=== PATIENT | female | born 1955 | race Two or more races ===

== ENCOUNTER 2020-02-11 15:46 | Inpatient (IN) | payer OTHER ==
[~2020-02-11] VITALS: Ht 162.6 cm; Wt 72.6 kg
--- NOTE | 2020-02-11 15:59 | Emergency Room Report ---
History of Present Illness General Chief Complaint: Upper Respiratory Illness Source: Patient Present Illness HPI Disclaimer: Please note that this report is being documented using DRAGON technology. This can lead to erroneous entry secondary to incorrect interpretation by the dictating instrument. HPI: 64-year-old female presents for evaluation of wheezing and shortness of breath. 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 No chemotherapy or surgery. Over the past 2 days the patient feels there is something stuck in her throat causing her wheezing/stridor. She has had some difficulty swallowing food. Also complaining of several episodes of emesis, one episode of loose stool, decreased appetite. Reports a cough though no significant change from baseline. Denies fever, chills. She is reporting some right ear pain and fullness intermittently over the past 2 weeks without changes in her hearing. She has intermittent episodes of vertigo but not currently. She has been treating the right ear pain with Motrin. Denies chest pain, palpitations, lightheadedness. PMH: Laryngeal cancer, pituitary adenoma PSH: Reviewed Allergies: None reported Social Hx: Denies drugs, tobacco or alcohol abuse Allergies: Coded Allergies: No Known Allergies (Unverified , 02/11/20) COVID-19 Screening Contact w/high risk pt: No Recent Travel to affected area: No Experienced COVID-19 symptoms?: Yes COVID-19 symptoms experienced: Shortness of Breath, Cough Review of Systems All Other Systems: negative except mentioned in HPI Physical Exam Vital Signs Date Time Temp Pulse Resp B/P (MAP) Pulse Ox O2 Delivery O2 Flow Rate FiO2 02/11/20 15:48 98.2 69 16 152/83 (106) 98 Room Air General: Awake and alert, no acute distress HEENT: NC/AT. EOMI. PERRLA. Right tympanic membrane is opacified but nonbulging. Left tympanic membrane view is obstructed by cerumen. Mild stridor but no respiratory distress. Uvula is midline, tongue is anatomic, no unilateral swelling, airway is patent. No foreign body identified. No submandibular edema. No erythema or discharge. Neck: Supple, trachea midline, no masses Chest Wall: No tenderness, no deformity Cardiovascular: RRR. S1 and S2 normal. No murmur appreciated Resp: Normal work of breathing. No cough, wheezing or crackles appreciated Abdomen: Abdomen is soft, nondistended. Nontender Skin: Intact. No abrasions, laceration or rash over the exposed skin MSK: Normal tone and bulk. Moving all extremities. No obvious deformity. Neuro: Awake and alert. Mentating appropriately. Medical Decision Making Diagnostic Impression: Primary Impression: Stridor Additional Impressions: URI (upper respiratory infection) Suspected 2018 novel coronavirus infection ER Course 66-year-old female history of laryngeal cancer treated with radiation last dose August 2019 presents for evaluation of 2 days worsening stridor shortness of breath as well as vomiting, diarrhea and right-sided ear pain with intermittent vertigo. Differential includes was not limited to viral syndrome, labyrinthitis , otitis media, pharyngitis, laryngitis, laryngeal mass recurrence, COVID-19, laryngeal edema, epiglottitis, lower airway obstruction, metastatic cancer, pneumonia, bronchitis, gastritis, gastroenteritis to name a few. Symptoms are consistent with a an upper respiratory infection. She has mild stridor but no respiratory distress and saturating well. Possible epiglottitis no concern for mass recurrence in the upper airway. Will start steroids, antibiotics, broad labs, CT scans of the neck and chest. Will send COVID-19 swab as well. Laboratory Tests Test 02/11/20 15:55 White Blood Count 6.8 K/UL (4.8-10.8) Red Blood Count 4.60 M/UL (4.20-5.40) Hemoglobin 13.2 G/DL (12.0-16.0) Hematocrit 40.0 % (37.0-47.0) Mean Corpuscular Volume 87 FL (80-99) Mean Corpuscular Hemoglobin 28.7 PG (27.0-31.0) Mean Corpuscular Hemoglobin Concent 33.1 G/DL (32.0-36.0) Red Cell Distribution Width 12.6 % (11.6-14.8) Platelet Count 359 K/UL (150-450) Mean Platelet Volume 7.2 FL (6.5-10.1) Neutrophils (%) (Auto) 67.7 % (45.0-75.0) Lymphocytes (%) (Auto) 26.0 % (20.0-45.0) Monocytes (%) (Auto) 4.7 % (1.0-10.0) Eosinophils (%) (Auto) 0.6 % (0.0-3.0) Basophils (%) (Auto) 0.9 % (0.0-2.0) Sodium Level 142 MMOL/L (136-145) Potassium Level 3.7 MMOL/L (3.5-5.1) Chloride Level 103 MMOL/L (98-107) Carbon Dioxide Level 27 MMOL/L (21-32) Anion Gap 12 mmol/L (5-15) Blood Urea Nitrogen 11 mg/dL (7-18) Creatinine 0.7 MG/DL (0.55-1.30) Estimated Glomerular Filtration Rate > 60 mL/min (>60) Glucose Level 108 MG/DL (74-106) H Calcium Level 9.1 MG/DL (8.5-10.1) CT/MRI/US Diagnostic Results CT/MRI/US Diagnostic Results : Impression Final Report CT neck with contrast History: Shortness of breath Technique: Axial contrast-enhanced CT of the neck with coronal, sagittal reformatted images. 99 cc Omnipaque 300 IV contrast. CTDI is 6.6 mGy and DLP is 334.2 mGy-cm. Technique more: One or more of the following dose reduction techniques were used : automated exposure control, adjustment of the mA and/or kV according to patient size, use of iterative reconstruction technique. Comparison: CT chest 02/11/2020 Findings: Intracranial: Normal. Globes orbits, visualized paranasal sinuses mastoid air cells, skull base are unremarkable. Vascular: Partially visualized [place], anterior and posterior circulation are unremarkable. Patent bilateral vertebral and carotid arteries. Upper chest: Separately dictated. No focal finding. Neck: Skull base, bilateral parapharyngeal spaces, parotids, boat hand space is seen to be normal. Oral cavity is symmetric and midline. Epiglottis, preepiglottic fat, submandibular region are noted to be normal. Normal asymmetry of the right greater than left false and true vocal cords. This may be artifactual. Submucosal space of the larynx, bilateral carotid sheath, suprascapular space are noted to be normal. Bones: Straightening of the normal cervical lordosis. Impression: 1. Negative for any significant of focal finding. 2. Straightening of the normal cervical lordosis. Radiologist: Abundio Burton MD Electronically Signed: 02/11/20 18:24 Study ready at 18:08 and initial results transmitted at 18:[address] chest with contrast History: Shortness of breath Technique: Axial contrast-enhanced CT of the chest with coronal, sagittal reformatted images. 99 cc Omnipaque 300 IV contrast. CTDI is 6.6 mGy and DLP is 334.2 mGy-cm. Technique more: One or more of the following dose reduction techniques were used : automated exposure control, adjustment of the mA and/or kV according to patient size, use of iterative reconstruction technique. Comparison: None Findings: Lungs: No endotracheal or endobronchial lesion. Negative for any interstitial or of the right lung finding. Negative for any significant or suspicious lung nodule. Minimal atelectasis in the inferior segment of left lingula overlying the fissure. Soft tissues: Thoracic inlet, suprascapular space, upper mediastinum, bilateral axilla are unremarkable. Negative for any significant mediastinal, hilar or subcarinal lymphadenopathy. Small hiatal hernia is seen. Vascular: Heart and pericardium are unremarkable. Normal caliber of the aorta. Chest wall: No focal findings. Upper abdomen: No focal findings. Bones: No lytic of last bone lesion. IMPRESSION: 1. No acute chest findings. Radiologist: Abundio Burton MD Electronically Signed: 02/11/20 18:20 Study ready at 18:07 and initial results transmitted at 18:20 Last Vital Signs Date Time Temp Pulse Resp B/P (MAP) Pulse Ox O2 Delivery O2 Flow Rate FiO2 02/11/20 15:48 98.2 69 16 152/83 (106) 98 Room Air Reevaluation Impression Labs have returned within normal limits. Patient remains mildly stridulous but no hypoxia. Chest CT does not show any infiltrate or mass. CT of the neck does not show evidence of acute epiglottitis. They note some asymmetry between the vocal cords however given her prior history this would not be unexpected. I feel the vocal cords are edematous. She was given steroids and ceftriaxone. Will admit for airway monitoring on observation status. Admitted to panel physician group Disposition: PLACE IN OBSERVATION Condition: Stable Darnell Bejarano MD February 11, 2020 15:59
--- NOTE | 2020-02-11 16:00 | NUR ---
ED Nurse Note: Pt walked in from home c/o productive cough x 2 days with SOB. Pt reports vomiting. Pt has hx of throat ca and last radiation was august of 2019. Respirations even and unlabored on room air. Audible wheezing. Vitals stable as documented. Afebrile, A+Ox4.
[2020-02-11 16:10] VITALS: BP 149/85
[2020-02-11 16:45] LABS: ANION GAP 12 mmol/L (5-15); BLOOD UREA NITROGEN 11 mg/dL (7-18); CALCIUM 9.1 MG/DL (8.5-10.1); CARBON DIOXIDE 27 MMOL/L (21-32); CHLORIDE 103 MMOL/L (98-107); CREATININE 0.7 MG/DL (0.55-1.30); POTASSIUM 3.7 MMOL/L (3.5-5.1); SODIUM 142 MMOL/L (136-145)
[2020-02-11 16:52] LABS: BASOPHILS % (AUTO) 0.9 % (0.0-2.0); EOSINOPHILS % (AUTO) 0.6 % (0.0-3.0); HEMOGLOBIN 13.2 G/DL (12.0-16.0); MEAN CORPUSCULAR VOLUME 87 FL (80-99); MONOCYTES % (AUTO) 4.7 % (1.0-10.0); NEUTROPHILS % (AUTO) 67.7 % (45.0-75.0); PLATELET COUNT 359 K/UL (150-450); RED CELL DISTRIBUTION WIDTH 12.6 % (11.6-14.8); WHITE BLOOD COUNT 6.8 K/UL (4.8-10.8)
--- NOTE | 2020-02-11 17:15 | NUR ---
ED Nurse Note: Pt in CT
--- NOTE | 2020-02-11 17:50 | NUR ---
ED Nurse Note: Pt back from CT
[2020-02-11] MEDS ORDERED: cefTRIAXone 1 GM in NS 55 ML IVPB ONE (18:15)
[2020-02-11] MEDS ORDERED: Solu-MEDROL 125mg Inj IVP ONE (18:15)
--- NOTE | 2020-02-11 18:21 | Diagnostic Imaging Report ---
CT chest with contrast History: Shortness of breath Technique: Axial contrast-enhanced CT of the chest with coronal, sagittal reformatted images. 99 cc Omnipaque 300 IV contrast. CTDI is 6.6 mGy and DLP is 334.2 mGy-cm. Technique more: One or more of the following dose reduction techniques were used: automated exposure control, adjustment of the mA and/or kV according to patient size, use of iterative reconstruction technique. Comparison: None Findings: Lungs: No endotracheal or endobronchial lesion. Negative for any interstitial or of the right lung finding. Negative for any significant or suspicious lung nodule. Minimal atelectasis in the inferior segment of left lingula overlying the fissure. Soft tissues: Thoracic inlet, suprascapular space, upper mediastinum, bilateral axilla are unremarkable. Negative for any significant mediastinal, hilar or subcarinal lymphadenopathy. Small hiatal hernia is seen. Vascular: Heart and pericardium are unremarkable. Normal caliber of the aorta. Chest wall: No focal findings. Upper abdomen: No focal findings. Bones: No lytic of last bone lesion. IMPRESSION: 1. No acute chest findings.
--- NOTE | 2020-02-11 18:25 | Diagnostic Imaging Report ---
CT neck with contrast History: Shortness of breath Technique: Axial contrast-enhanced CT of the neck with coronal, sagittal reformatted images. 99 cc Omnipaque 300 IV contrast. CTDI is 6.6 mGy and DLP is 334.2 mGy-cm. Technique more: One or more of the following dose reduction techniques were used: automated exposure control, adjustment of the mA and/or kV according to patient size, use of iterative reconstruction technique. Comparison: CT chest 02/11/2020 Findings: Intracranial: Normal. Globes orbits, visualized paranasal sinuses mastoid air cells, skull base are unremarkable. Vascular: Partially visualized [place], anterior and posterior circulation are unremarkable. Patent bilateral vertebral and carotid arteries. Upper chest: Separately dictated. No focal finding. Neck: Skull base, bilateral parapharyngeal spaces, parotids, infrastructure manager space is seen to be normal. Oral cavity is symmetric and midline. Epiglottis, preepiglottic fat, submandibular region are noted to be normal. Normal asymmetry of the right greater than left false and true vocal cords. This may be artifactual. Submucosal space of the larynx, bilateral carotid sheath, suprascapular space are noted to be normal. Bones: Straightening of the normal cervical lordosis. Impression: 1. Negative for any significant of focal finding. 2. Straightening of the normal cervical lordosis.
--- NOTE | 2020-02-11 18:28 | NUR ---
ED Nurse Note: Pt oncologist is Dr. Vasyl Santos --> [phone]
[2020-02-11 18:34] VITALS: BP 157/86
--- NOTE | 2020-02-11 18:36 | NUR ---
ED Nurse Note: Pt continues to have stridor. O2 saturation 98% on room air.
--- NOTE | 2020-02-11 18:54 | NUR ---
HAND-OFF: Report given to MOISES Govea. Pt in stable condition; plan of care endorsed.
--- NOTE | 2020-02-11 19:00 | NUR ---
ED Nurse Note: pt received from MOISES Saeed in stable condition with stable vital signs on windows application packager. IV line is flushing, patent and intact. will continue to monitor patient and prepare for admission.
[2020-02-11] MEDS ORDERED: D5NS 1000ml IV ONE (19:12)
[2020-02-11 20:32] VITALS: BP 159/82
--- NOTE | 2020-02-11 20:49 | NUR ---
ED Nurse Note: admitting RN Chely not ready for report, stated she would call back in 30 minutes
--- NOTE | 2020-02-11 21:12 | NUR ---
TRANSFER TO FLOOR: Patient transferred to as ordered, per JANIA Bejarano. Report given to MOISES Mo. Belongings sent with pt
--- NOTE | 2020-02-11 21:30 | NUR ---
NURSE NOTES: Received patient from MOISES Govea. Patient awake, alert, and oriented. Mostly german speaking but able to understand minimal khmer. Asked help from staff member for translation. Came to the unit with 2 ED staff; had a mask on. IV intact on LAC, flushed. VS upon arrival to the unit: 129/66, HR: 63, RR: 18, T: 97.5, SpO2: 99% on room air. No signs of acute distress or shortness of breath. Skin is intact. Leads placed on patient's chest. Gown changed. Yellow socks worn. Bed in lowest position, brakes engaged. Belongings placed within reach. Call light placed within reach. Oriented to room and facility policy. Will continue to monitor.
--- NOTE | 2020-02-11 22:00 | NUR ---
NURSE NOTES: Received admission orders from on-call doctor. Orders noted and will carry out.
[2020-02-11] MEDS: D5NS 1,000 ML IV SCH (22:45)
[2020-02-11] MEDS: Enoxaparin 40mg Inj SUBQ SCH (23:00)
[2020-02-12] VITALS: BP 146/71
[2020-02-12] MEDS ORDERED: Solu-MEDROL 40mg Inj IVP SCH (02:00)
[2020-02-12 04:00] VITALS: BP 138/73
[2020-02-12 06:06] LABS: HEMATOCRIT 39.7 % (37.0-47.0); HEMOGLOBIN 13.5 G/DL (12.0-16.0); MEAN CORPUSCULAR VOLUME 83 FL (80-99); PLATELET COUNT 367 K/UL (150-450); RED BLOOD COUNT 4.77 M/UL (4.20-5.40); RED CELL DISTRIBUTION WIDTH 11.3 % (11.6-14.8); WHITE BLOOD COUNT 6.1 K/UL (4.8-10.8)
[2020-02-12 06:48] LABS: ANION GAP 7 mmol/L (5-15); BLOOD UREA NITROGEN 11 mg/dL (7-18); CALCIUM 9.4 MG/DL (8.5-10.1); CARBON DIOXIDE 28 MMOL/L (21-32); CHLORIDE 104 MMOL/L (98-107); CREATININE 0.7 MG/DL (0.55-1.30); SODIUM 139 MMOL/L (136-145)
[2020-02-12 07:15] LABS: ALANINE AMINOTRANSFERASE 23 U/L (12-78); ALBUMIN 4.1 G/DL (3.4-5.0); ALKALINE PHOSPHATASE 103 U/L (46-116); ASPARTATE AMINO TRANSFERASE 21 U/L (15-37); BILIRUBIN,DIRECT < 0.1 MG/DL (0.0-0.3); BILIRUBIN,TOTAL 0.3 MG/DL (0.2-1.0)
--- NOTE | 2020-02-12 07:33 | NUR ---
HAND-OFF: Report given to MOISES Mckee. Plan of care endorsed. Patient stable. Still on NPO.
--- NOTE | 2020-02-12 07:52 | NUR ---
NURSE NOTES: Received report from MOISES Mo. Patient in bed resting, no active s/s cardiac, respiratory distress expect stridor. AOx4, SR with HR 68, on room air. Endorsed NPO status for stridor. IV on right AC 20G, asymptomatic, patent, intact, IVF running as prescribed rate. Bed in lowest position, side rails upx2, call light within reach. Will continue to monitor.
[2020-02-12 08:00] VITALS: BP 140/64
[2020-02-12] MEDS: Solu-MEDROL 40mg Inj IVP SCH ×2 (08:23→17:23)
--- NOTE | 2020-02-12 10:26 | History & Physical ---
History of Present Illness General Date patient seen: February 12, 2020 Reason for Hospitalization: Upper Respiratory Illness Present Illness HPI This is a 64-year-old female with a past medical history of laryngeal cancer status post radiation, did not receive chemotherapy, who presents to the emergency room complaining of shortness of breath for the past 2 days along with approximately 1 week of abdominal pain, nausea, and today she experienced dizziness and vertigo. 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 Patient initially presented feeling like she could not breathe and was complaining of stridor-like symptoms so initially CT chest and CT neck were both obtained, however this did not reveal any vocal cord edema or signs of epiglottitis, likely just chronic changes associated with patient's laryngeal cancer and history of radiation. At the present moment patient is stable, she is saturating well on room air, she has bradycardia but this is mild, and she is asymptomatic, currently pending EKG. COVID test has been sent PMH: Pituitary Adenoma, Laryngeal CA PSH: Denies smoking, and drug use FH: HTN, DM Allergies: Coded Allergies: No Known Allergies (Unverified , 02/11/20) COVID-19 Screening Contact w/high risk pt: No Recent Travel to affected area: No Experienced COVID-19 symptoms?: Yes COVID-19 symptoms experienced: Shortness of Breath, Cough Patient History Healthcare decision maker Resuscitation status Advanced Directive on File Review of Systems Review of Symptoms General ROS: no weight loss or fever Psychological ROS: no depression or mood changes, no memory loss Ophthalmic ROS: no visual changes or eye irritation ENT ROS: no nasal congestion, hearing loss, dizziness Allergy and Immunology ROS: no allergic symptoms or urticaria Hematological and Lymphatic ROS: no swollen glands, unusual bleeding or bruising Endocrine ROS: no polyuria, polydipsia, weight changes, temperature intolerance Respiratory ROS: + SOB, Wheezing, Stridor Cardiovascular ROS: no chest pain or dyspnea on exertion Gastrointestinal ROS: +Nausea/Diarrhea/vomiting Musculoskeletal ROS: no myalgias or arthralgias Neurological ROS: no TIA or stroke symptoms Dermatological ROS: no new or changing skin lesions, rashes or pruritis Physical Exam Physical Exam General appearance: alert, cooperative, no distress, appears stated age Head: Normocephalic, without obvious abnormality, atraumatic Eyes: conjunctivae/corneas clear. PERRL, EOM's intact. Fundi benign Throat: Lips, mucosa, and tongue normal. Teeth and gums normal Neck: supple, symmetrical, trachea midline, no adenopathy, thyroid: not enlarged, symmetric, no tenderness/mass/nodules, no carotid bruit and no JVD Lungs: clear to auscultation bilaterally, no wheezing, no stridor Heart: regular rate and rhythm, S1, S2 normal, no murmur, click, rub or gallop Abdomen: soft, non-tender. Bowel sounds normal. No masses, no organomegaly Extremities: extremities normal, atraumatic, no cyanosis or edema Pulses: 2+ and symmetric Skin: Skin color, texture, turgor normal. No rashes or lesions Neurologic: Grossly normal Last 24 Hour Vital Signs Date Time Temp Pulse Resp B/P (MAP) Pulse Ox O2 Delivery O2 Flow Rate FiO2 02/12/20 09:00 Room Air 02/12/20 08:00 97.7 56 17 140/64 (89) 95 02/12/20 08:00 56 02/12/20 04:00 97.2 68 18 138/73 (94) 98 02/12/20 00:00 98.6 70 18 146/71 (96) 98 02/12/20 00:00 65 02/11/20 23:33 Room Air 02/11/20 21:15 98.0 61 20 159/82 100 Room Air 02/11/20 20:32 61 20 159/82 100 Room Air 02/11/20 18:34 98.0 62 18 157/86 98 Room Air 02/11/20 16:10 98.1 74 18 149/85 98 Room Air 02/11/20 16:00 72 18 Room Air 02/11/20 15:48 98.2 69 16 152/83 (106) 98 Room Air Intake and Output 02/11/20 02/12/20 19:00 07:00 Intake Total 375 ml Balance 375 ml Intake IV Total 375 ml # Voids 3 # Bowel Movements 1 Laboratory Tests Test 02/11/20 15:55 02/12/20 05:30 White Blood Count 6.8 K/UL (4.8-10.8) 6.1 K/UL (4.8-10.8) Red Blood Count 4.60 M/UL (4.20-5.40) 4.77 M/UL (4.20-5.40) Hemoglobin 13.2 G/DL (12.0-16.0) 13.5 G/DL (12.0-16.0) Hematocrit 40.0 % (37.0-47.0) 39.7 % (37.0-47.0) Mean Corpuscular Volume 87 FL (80-99) 83 FL (80-99) Mean Corpuscular Hemoglobin 28.7 PG (27.0-31.0) 28.3 PG (27.0-31.0) Mean Corpuscular Hemoglobin Concent 33.1 G/DL (32.0-36.0) 34.1 G/DL (32.0-36.0) Red Cell Distribution Width 12.6 % (11.6-14.8) 11.3 % (11.6-14.8) L Platelet Count 359 K/UL (150-450) 367 K/UL (150-450) Mean Platelet Volume 7.2 FL (6.5-10.1) 6.2 FL (6.5-10.1) L Neutrophils (%) (Auto) 67.7 % (45.0-75.0) % (45.0-75.0) Lymphocytes (%) (Auto) 26.0 % (20.0-45.0) % (20.0-45.0) Monocytes (%) (Auto) 4.7 % (1.0-10.0) % (1.0-10.0) Eosinophils (%) (Auto) 0.6 % (0.0-3.0) % (0.0-3.0) Basophils (%) (Auto) 0.9 % (0.0-2.0) % (0.0-2.0) Sodium Level 142 MMOL/L (136-145) 139 MMOL/L (136-145) Potassium Level 3.7 MMOL/L (3.5-5.1) 4.0 MMOL/L (3.5-5.1) Chloride Level 103 MMOL/L (98-107) 104 MMOL/L (98-107) Carbon Dioxide Level 27 MMOL/L (21-32) 28 MMOL/L (21-32) Anion Gap 12 mmol/L (5-15) 7 mmol/L (5-15) Blood Urea Nitrogen 11 mg/dL (7-18) 11 mg/dL (7-18) Creatinine 0.7 MG/DL (0.55-1.30) 0.7 MG/DL (0.55-1.30) Estimat Glomerular Filtration Rate > 60 mL/min (>60) > 60 mL/min (>60) Glucose Level 108 MG/DL (74-106) H 166 MG/DL (74-106) H Calcium Level 9.1 MG/DL (8.5-10.1) 9.4 MG/DL (8.5-10.1) Differential Total Cells Counted 100 Neutrophils % (Manual) 84 % (45-75) H Lymphocytes % (Manual) 15 % (20-45) L Monocytes % (Manual) 1 % (1-10) Eosinophils % (Manual) 0 % (0-3) Basophils % (Manual) 0 % (0-2) Band Neutrophils 0 % (0-8) Platelet Estimate Adequate Platelet Morphology Normal Red Blood Cell Morphology Normal Total Bilirubin 0.3 MG/DL (0.2-1.0) Direct Bilirubin < 0.1 MG/DL (0.0-0.3) Aspartate Amino Transf (AST/SGOT) 21 U/L (15-37) Alanine Aminotransferase (ALT/SGPT) 23 U/L (12-78) Alkaline Phosphatase 103 U/L (46-116) Total Protein 8.7 G/DL (6.4-8.2) H Albumin 4.1 G/DL (3.4-5.0) Thyroid Stimulating Hormone (TSH) 0.672 uiU/mL (0.358-3.740) Height (Feet): 5 Height (Inches): 4.00 Weight (Pounds): 160 Medications Current Medications Medications (Trade) Dose Ordered Sig/Grady Route PRN Reason Start Time Stop Time Status Last Admin Dose Admin Acetaminophen (Tylenol) 650 mg Q4H PRN ORAL Mild Pain (Pain Scale 1-3) 02/11/20 22:00 03/12/20 21:59 Acetaminophen (Tylenol) 650 mg Q4H PRN ORAL Temp >100.5 02/11/20 22:00 03/12/20 21:59 Albuterol/ Ipratropium (Combivent Respimat) 1 puff Q6H PRN INH Shortness of Breath 02/12/20 00:00 03/13/20 00:00 Dextrose (Dextrose 50%) 25 ml Q30M PRN IV Hypoglycemia 02/11/20 22:00 05/11/20 21:59 Dextrose (Dextrose 50%) 50 ml Q30M PRN IV Hypoglycemia 02/11/20 22:00 05/11/20 21:59 Dextrose/Sodium Chloride 1,000 ml @ 75 mls/hr [id number] IV 02/11/20 23:00 03/12/20 22:59 02/11/20 22:45 Enoxaparin Sodium (Lovenox) 40 mg Q24H SUBQ 02/11/20 23:00 05/11/20 22:59 02/11/20 23:00 Famotidine (Pepcid) 20 mg BID ORAL 02/12/20 09:00 05/12/20 08:59 02/12/20 08:23 Methylprednisolone Sodium Succinate (Solu-MEDROL) 40 mg Q8H IVP 02/12/20 09:00 05/12/20 08:59 02/12/20 08:23 Ondansetron HCl (Zofran) 4 mg Q6H PRN IVP Nausea & Vomiting 02/11/20 22:00 03/12/20 21:59 Assessment/Plan Assessment/Plan: Assessment #R/O COVID, CT chest and Neck w/o signs of epiglottitis or infiltrate , s/p Solumedrol IV w/ improvement, saturating well on RA--> patient also endorses GI symptoms #Hx of Laryngeal CA, s/p Radiation, Stable Issue Plan COVID test sent, Rocephin and Azithro IV Solumedrol for concern for stridor, however hope to d/c if improves given rule out COVID Obtain predictive markers; LDH, CK, CRP, Ferritin, D-dimer Hand Held Inhalers prn Isolation DVT/GI ppx as indicated Diet as tolerated [facility] Hospital declaration Blanca Brennan D.O. February 12, 2020 10:26
[2020-02-12] MEDS: Azithromycin 500 MG in D5W 275 ML IV SCH (10:51)
[2020-02-12] MEDS: D5NS 1,000 ML IV SCH (11:55)
[2020-02-12 12:00] VITALS: BP 135/57
[2020-02-12 12:27] LABS: CREATINE KINASE 66 U/L (26-308); FERRITIN 98 NG/ML (8-388); LACTATE DEHYDROGENASE 165 U/L (81-234)
--- NOTE | 2020-02-12 12:55 | NUR ---
NURSE NOTES: Paged Dr. Brennan, per MD regular diet clear liquid diet, can advance if tolerated. MD made aware of HR 40-50, asymptomatic. No new order received at this time. Will continue to monitor.
[2020-02-12 16:00] VITALS: BP 151/61
--- NOTE | 2020-02-12 19:06 | NUR ---
HAND-OFF: Report given to MOISES Mo. Endorsed plan of care.
--- NOTE | 2020-02-12 19:25 | NUR ---
NURSE NOTES: Received report from MOISES Mckee. Patient awake, alert, and responsive. Able to verbalize needs. Denies pain or discomfort at this time. IV intact and flushed. IVF running at prescribed rate. No signs of acute distress or shortness of breath. On room air, breathing is unlabored. Skin is intact. Bed in lowest position, brakes engaged. Bed rails raised x2. Call light and belongings placed within reach. Will continue to monitor.
--- NOTE | 2020-02-12 19:31 | Cardiac Electrophysiology PN ---
Subjective Subjective [id number] Objective Last 24 Hour Vital Signs Date Time Temp Pulse Resp B/P (MAP) Pulse Ox O2 Delivery O2 Flow Rate FiO2 02/12/20 16:00 50 02/12/20 16:00 97.8 65 17 151/61 (91) 97 02/12/20 12:00 98.4 48 17 135/57 (83) 96 02/12/20 12:00 44 02/12/20 09:00 Room Air 02/12/20 08:00 97.7 56 17 140/64 (89) 95 02/12/20 08:00 56 02/12/20 04:00 97.2 68 18 138/73 (94) 98 02/12/20 00:00 98.6 70 18 146/71 (96) 98 02/12/20 00:00 65 02/11/20 23:33 Room Air 02/11/20 21:15 98.0 61 20 159/82 100 Room Air 02/11/20 20:32 61 20 159/82 100 Room Air Intake and Output 02/11/20 02/12/20 19:00 07:00 Intake Total 375 ml Balance 375 ml IV Total 375 ml # Voids 3 # Bowel Movements 1 Laboratory Tests Test 02/12/20 05:30 02/12/20 05:53 02/12/20 16:40 02/12/20 17:24 White Blood Count 6.1 K/UL (4.8-10.8) Red Blood Count 4.77 M/UL (4.20-5.40) Hemoglobin 13.5 G/DL (12.0-16.0) Hematocrit 39.7 % (37.0-47.0) Mean Corpuscular Volume 83 FL (80-99) Mean Corpuscular Hemoglobin 28.3 PG (27.0-31.0) Mean Corpuscular Hemoglobin Concent 34.1 G/DL (32.0-36.0) Red Cell Distribution Width 11.3 % (11.6-14.8) L Platelet Count 367 K/UL (150-450) Mean Platelet Volume 6.2 FL (6.5-10.1) L Neutrophils (%) (Auto) % (45.0-75.0) Lymphocytes (%) (Auto) % (20.0-45.0) Monocytes (%) (Auto) % (1.0-10.0) Eosinophils (%) (Auto) % (0.0-3.0) Basophils (%) (Auto) % (0.0-2.0) Differential Total Cells Counted 100 Neutrophils % (Manual) 84 % (45-75) H Lymphocytes % (Manual) 15 % (20-45) L Monocytes % (Manual) 1 % (1-10) Eosinophils % (Manual) 0 % (0-3) Basophils % (Manual) 0 % (0-2) Band Neutrophils 0 % (0-8) Platelet Estimate Adequate Platelet Morphology Normal Red Blood Cell Morphology Normal Sodium Level 139 MMOL/L (136-145) Potassium Level 4.0 MMOL/L (3.5-5.1) Chloride Level 104 MMOL/L (98-107) Carbon Dioxide Level 28 MMOL/L (21-32) Anion Gap 7 mmol/L (5-15) Blood Urea Nitrogen 11 mg/dL (7-18) Creatinine 0.7 MG/DL (0.55-1.30) Estimat Glomerular Filtration Rate > 60 mL/min (>60) Glucose Level 166 MG/DL (74-106) H Calcium Level 9.4 MG/DL (8.5-10.1) Total Bilirubin 0.3 MG/DL (0.2-1.0) Direct Bilirubin < 0.1 MG/DL (0.0-0.3) Aspartate Amino Transf (AST/SGOT) 21 U/L (15-37) Alanine Aminotransferase (ALT/SGPT) 23 U/L (12-78) Alkaline Phosphatase 103 U/L (46-116) Total Protein 8.7 G/DL (6.4-8.2) H Albumin 4.1 G/DL (3.4-5.0) Thyroid Stimulating Hormone (TSH) 0.672 uiU/mL (0.358-3.740) Ferritin 98 NG/ML (8-388) Lactate Dehydrogenase 165 U/L (81-234) Total Creatine Kinase 66 U/L (26-308) C-Reactive Protein, Quantitative 1.4 mg/dL (0.00-0.90) H D-Dimer 0.84 mg/L FEU (0.00-0.49) H Troponin I 0.010 ng/mL (0.000-0.056) Arnaldo Reid MD February 12, 2020 19:31
[2020-02-12 20:00] VITALS: BP 156/66
[2020-02-12] MEDS: Enoxaparin 40mg Inj SUBQ SCH (22:17)
[2020-02-13] VITALS: BP 146/78
[2020-02-13] MEDS: Solu-MEDROL 40mg Inj IVP SCH ×2 (00:53→09:00)
[2020-02-13] MEDS: D5NS 1,000 ML IV SCH (00:54)
--- NOTE | 2020-02-13 01:59 | Consultation ---
DATE OF CONSULTATION: 02/12/2020 CARDIOLOGY CONSULTATION CONSULTING PHYSICIAN: Arnaldo Reid M.D. REFERRING PHYSICIAN: Jaylen Soto M.D. REASON FOR CONSULTATION: Bradycardia. HISTORY OF PRESENT ILLNESS: This is a 64-year-old lady with history of laryngeal cancer status post radiation, but no chemotherapy presents to the emergency room with shortness of breath for two days as well as one week of abdominal pain, nausea, and dizziness. The patient works in the [employer] and has been wearing a mask the whole time. The patient also initially had stridor-like symptoms, so CT of the chest ____ CT of the neck were obtained, but not revealing any vocal cord edema or sign of epiglottitis. The patient was admitted and is being ruled out for COVID-19. However, the patient remains persistently bradycardic, heart rate dropping as low as 42. A cardiology consultation was obtained for further evaluation. REVIEW OF SYSTEMS: Review of systems was negative other than what is mentioned in the history of present illness. PAST MEDICAL HISTORY: As mentioned above. FAMILY HISTORY: Noncontributory. ALLERGIES: No known drug allergies. PHYSICAL EXAMINATION: VITAL SIGNS: Blood pressure of 151/61, pulse 50, respirations 18, ____. HEAD AND NECK: No JVD or carotid bruits. LUNGS: Clear. CARDIOVASCULAR: Bradycardic S1 and S2 with no gallop. ABDOMEN: Soft. EXTREMITIES: No pitting edema. LABORATORY DATA: Labs show white count 6.1, hemoglobin 13.5, hematocrit 39.7, and platelet count 367. Sodium 139, potassium 4.0, BUN of 11, creatinine 0.7, and glucose of 166. First troponin is negative. TSH is 0.672. ASSESSMENT AND PLAN: 1. Bradycardia, etiology is not clear. The patient is not on ____ beta-galdino or calcium channel galdino or clonidine. Her TSH is within normal range. I will repeat the T4 and TSH in the morning. Get an echocardiogram and completely rule out CA protocol. We will watch the patient on telemetry. 2. Cough and shortness of breath. The patient is being ruled out for COVID. She is on Solu-Medrol and azithromycin. 3. History of laryngeal cancer, status post radiation. CT of the chest and neck showed no signs of epiglottitis or infiltrate. Thank you much for allowing me to participate in the care of this patient. Please do not hesitate to contact me for any questions regarding my evaluation. Arnaldo Reid M.D. DR: NUVIA JOB#: [id number] CC:
--- NOTE | 2020-02-13 02:11 | NUR ---
NURSE NOTES: Patient asleep, but arousable. With episodes of bradycardia, but asymptomatic. IVF running at a prescribed rate. Bed in lowest position, brakes engaged. Bed rails raised x2. Call light placed within reach. Will continue to monitor.
[2020-02-13 04:00] VITALS: BP 144/67
[2020-02-13 04:37] LABS: HEMATOCRIT 37.2 % (37.0-47.0); HEMOGLOBIN 12.9 G/DL (12.0-16.0); MEAN CORPUSCULAR VOLUME 83 FL (80-99); PLATELET COUNT 317 K/UL (150-450); RED CELL DISTRIBUTION WIDTH 11.5 % (11.6-14.8); WHITE BLOOD COUNT 14.4 K/UL (4.8-10.8)
[2020-02-13 04:53] LABS: ALANINE AMINOTRANSFERASE 26 U/L (12-78); ALBUMIN 3.8 G/DL (3.4-5.0); ALBUMIN/GLOBULIN RATIO 0.9 (1.0-2.7); ALKALINE PHOSPHATASE 85 U/L (46-116); ANION GAP 10 mmol/L (5-15); ASPARTATE AMINO TRANSFERASE 18 U/L (15-37); BILIRUBIN,TOTAL 0.3 MG/DL (0.2-1.0); BLOOD UREA NITROGEN 10 mg/dL (7-18); CALCIUM 9.2 MG/DL (8.5-10.1); CARBON DIOXIDE 26 MMOL/L (21-32); CHLORIDE 107 MMOL/L (98-107); CREATININE 0.8 MG/DL (0.55-1.30); PHOSPHORUS 3.6 MG/DL (2.5-4.9); POTASSIUM 3.8 MMOL/L (3.5-5.1); SODIUM 143 MMOL/L (136-145)
--- NOTE | 2020-02-13 07:41 | NUR ---
HAND-OFF: Report given to MOISES Alvarado. Patient stable. Plan of care endorsed.
[2020-02-13 08:00] VITALS: BP 133/61
--- NOTE | 2020-02-13 08:34 | General Progress Note ---
Assessment/Plan Assessment/Plan: 64-year-old female with PMH of laryngeal cancer status post radiation, did not receive chemotherapy, who presents to the emergency room complaining of shortness of breath for the past 2 days along with approximately 1 week of abdominal pain, nausea, and today she experienced dizziness and vertigo. #Shortness of Breath #R/O COVID #Leukocytosis likely 2/2 solumedrol -cont in-pt medical care -CT chest and Neck w/o signs of epiglottitis or infiltrate , s/p Solumedrol IV w / improvement, saturating well on RA--> patient also endorses GI symptoms -COVID test pending -Solumedrol for concern for stridor, however hope to d/c if improves given rule out COVID -decrease solumedrol from q8h to q12h pt w/no stridor -Obtain predictive markers q3 days; LDH, CK, CRP, Ferritin, D-dimer -Hand Held Inhalers prn -Isolation -abx Rocephin and Azithro IV -ID consulted, recs appreciated #Bradycardia -TSH/FT4 in normal range -pt not on BB or CCB or clonidine -echo EF 60% -appreciate cardio recs #Hx of Laryngeal CA, s/p Radiation -Stable DVT ppx - lovenox Time spent 35 mins, >50% time spent on coordination of care. Additional 29 mins spent on review of H&P, consult notes, labs, radiographic findings. Subjective Allergies: Coded Allergies: No Known Allergies (Unverified , 02/11/20) Subjective F/u for COVID pending r/o. Pt with no concerns, states she is feeling better. Objective Last 24 Hour Vital Signs Date Time Temp Pulse Resp B/P (MAP) Pulse Ox O2 Delivery O2 Flow Rate FiO2 02/13/20 04:00 97.9 63 18 144/67 (92) 98 02/13/20 04:00 52 02/13/20 00:00 55 02/13/20 00:00 97.7 63 18 146/78 (100) 95 02/12/20 21:00 Room Air 02/12/20 20:00 60 02/12/20 20:00 97.4 52 18 156/66 (96) 96 02/12/20 16:00 50 02/12/20 16:00 97.8 65 17 151/61 (91) 97 02/12/20 12:00 98.4 48 17 135/57 (83) 96 02/12/20 12:00 44 02/12/20 09:00 Room Air Intake and Output 02/12/20 02/13/20 19:00 07:00 Intake Total 1005 ml 1300 ml Balance 1005 ml 1300 ml Intake Oral 480 ml IV Total 525 ml 1300 ml # Voids 3 2 Laboratory Tests 02/12/20 16:40: D-Dimer 0.84H 02/12/20 17:24: Troponin I 0.010 02/13/20 04:00: White Blood Count 14.4#H, Red Blood Count 4.50, Hemoglobin 12.9, Hematocrit 37.2 , Mean Corpuscular Volume 83, Mean Corpuscular Hemoglobin 28.7, Mean Corpuscular Hemoglobin Concent 34.7, Red Cell Distribution Width 11.5L, Platelet Count 317, Mean Platelet Volume 6.1L, Neutrophils (%) (Auto) , Lymphocytes (%) (Auto) , Monocytes (%) (Auto) , Eosinophils (%) (Auto) , Basophils (%) (Auto) , Sodium Level 143, Potassium Level 3.8, Chloride Level 107 , Carbon Dioxide Level 26, Anion Gap 10, Blood Urea Nitrogen 10, Creatinine 0.8 , Estimat Glomerular Filtration Rate > 60, Glucose Level 152H, Calcium Level 9.2 , Phosphorus Level 3.6, Magnesium Level 2.0, Total Bilirubin 0.3, Aspartate Amino Transf (AST/SGOT) 18, Alanine Aminotransferase (ALT/SGPT) 26, Alkaline Phosphatase 85, Total Protein 7.8, Albumin 3.8, Globulin 4.0, Albumin/Globulin Ratio 0.9L, Thyroid Stimulating Hormone (TSH) 0.378, Free Thyroxine 1.11 Height (Feet): 5 Height (Inches): 4.00 Weight (Pounds): 160 Jean Akers M.D. February 13, 2020 08:34
[2020-02-13] MEDS: Azithromycin 500 MG in D5W 275 ML IV SCH (11:00)
--- NOTE | 2020-02-13 11:18 | NUR ---
*-* INSURANCE *-* ALL AVAILABLE CLINICALS HAVE BEEN FAXED TO: ASHELY WINTER:CONY P: [phone]
--- NOTE | 2020-02-13 11:18 | NUR ---
*-* NO INSURANCE INFORMATION IN THE BAR UNABLE TO SEND CLINICALS OR REVIEWS *-*
[2020-02-13 12:00] VITALS: BP 115/78
--- NOTE | 2020-02-13 13:16 | Cardiac Electrophysiology PN ---
Assessment/Plan Assessment/Plan 1. Bradycardia, etiology is not clear. Off any beta-galdino or calcium channel galdino or clonidine. Her TSH is within normal range. Echocardiogram EF 60% and was ruled out for [place] 2. Cough and shortness of breath. The patient is being ruled out for COVID. She is on Solu-Medrol and azithromycin. 3. History of laryngeal cancer, status post radiation. CT of the chest and neck showed no signs of epiglottitis or infiltrate. Subjective Subjective Still coughs. Is being ruled out for COVID Objective Last 24 Hour Vital Signs Date Time Temp Pulse Resp B/P (MAP) Pulse Ox O2 Delivery O2 Flow Rate FiO2 02/13/20 04:00 97.9 63 18 144/67 (92) 98 02/13/20 04:00 52 02/13/20 00:00 55 02/13/20 00:00 97.7 63 18 146/78 (100) 95 02/12/20 21:00 Room Air 02/12/20 20:00 60 02/12/20 20:00 97.4 52 18 156/66 (96) 96 02/12/20 16:00 50 02/12/20 16:00 97.8 65 17 151/61 (91) 97 Intake and Output 02/12/20 02/13/20 19:00 07:00 Intake Total 1005 ml 1300 ml Balance 1005 ml 1300 ml Intake Oral 480 ml IV Total 525 ml 1300 ml # Voids 3 2 Laboratory Tests Test 02/12/20 16:40 02/12/20 17:24 02/13/20 04:00 D-Dimer 0.84 mg/L FEU (0.00-0.49) H Troponin I 0.010 ng/mL (0.000-0.056) White Blood Count 14.4 K/UL (4.8-10.8) #H Red Blood Count 4.50 M/UL (4.20-5.40) Hemoglobin 12.9 G/DL (12.0-16.0) Hematocrit 37.2 % (37.0-47.0) Mean Corpuscular Volume 83 FL (80-99) Mean Corpuscular Hemoglobin 28.7 PG (27.0-31.0) Mean Corpuscular Hemoglobin Concent 34.7 G/DL (32.0-36.0) Red Cell Distribution Width 11.5 % (11.6-14.8) L Platelet Count 317 K/UL (150-450) Mean Platelet Volume 6.1 FL (6.5-10.1) L Neutrophils (%) (Auto) % (45.0-75.0) Lymphocytes (%) (Auto) % (20.0-45.0) Monocytes (%) (Auto) % (1.0-10.0) Eosinophils (%) (Auto) % (0.0-3.0) Basophils (%) (Auto) % (0.0-2.0) Sodium Level 143 MMOL/L (136-145) Potassium Level 3.8 MMOL/L (3.5-5.1) Chloride Level 107 MMOL/L (98-107) Carbon Dioxide Level 26 MMOL/L (21-32) Anion Gap 10 mmol/L (5-15) Blood Urea Nitrogen 10 mg/dL (7-18) Creatinine 0.8 MG/DL (0.55-1.30) Estimat Glomerular Filtration Rate > 60 mL/min (>60) Glucose Level 152 MG/DL (74-106) H Calcium Level 9.2 MG/DL (8.5-10.1) Phosphorus Level 3.6 MG/DL (2.5-4.9) Magnesium Level 2.0 MG/DL (1.8-2.4) Total Bilirubin 0.3 MG/DL (0.2-1.0) Aspartate Amino Transf (AST/SGOT) 18 U/L (15-37) Alanine Aminotransferase (ALT/SGPT) 26 U/L (12-78) Alkaline Phosphatase 85 U/L (46-116) C-Reactive Protein, Quantitative 0.8 mg/dL (0.00-0.90) Total Protein 7.8 G/DL (6.4-8.2) Albumin 3.8 G/DL (3.4-5.0) Globulin 4.0 g/dL Albumin/Globulin Ratio 0.9 (1.0-2.7) L Thyroid Stimulating Hormone (TSH) 0.378 uiU/mL (0.358-3.740) Free Thyroxine 1.11 NG/DL (0.76-1.46) Microbiology Date/Time Source Procedure Growth Status 02/11/20 18:15 Blood Blood Culture - Preliminary NO GROWTH AFTER 24 HOURS Resulted 02/11/20 18:00 Blood Blood Culture - Preliminary NO GROWTH AFTER 24 HOURS Resulted Objective HEAD AND NECK: No JVD LUNGS: Clear. CARDIOVASCULAR: Bradycardic S1 and S2 with no gallop. ABDOMEN: Soft. EXTREMITIES: No pitting edema. Arnaldo Reid MD February 13, 2020 13:16
--- NOTE | 2020-02-13 13:49 | NUR ---
CASE MANAGEMENT: REVIEW 64 YEAR OLD FEMALE PRESENTED TO ED CC: COUGH . SOB . Hx THROAT CA SI: COVID R/O T 97.4 HR 52 RR 18 BP 156/66 SAT 96% ROOM AIR D-DIMER 0.84 IS: ROCEPHIN IV X1 SOLU-MEDROL IV X1 PATIENT ADMITTED TO TELEMETRY UNIT 02/11/2020 DCP: PATIENT IS FROM HOME
[2020-02-13 16:00] VITALS: BP 106/68
[2020-02-13] MEDS ORDERED: D5NS 1000ml IV ONE (17:06)
--- NOTE | 2020-02-13 18:45 | NUR ---
SETTLEMENT WORKER orders received and acknowledged for Cognitive Communicative, Speech, and Language Evaluation; Referred to SETTLEMENT WORKER by Dr. Patel. Preliminary Report, formal report to follow. Please see the care activity section for a complete report. Initial Impressions: Pt presenting w/ mild cognitive communicative deficit in the area of memory (immediate recall and delayed recall), alternating attention, and higher level cognitive tasks. 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 Pt's language and auditory comprehension are intact, no difficulties expressing wants and needs and Pt is able to comprehend multi-step commands. Pt does report poor dentition s/p SENIOR ELECTRONICS DESIGN ENGINEER and is unable to masticate regular solids, Pt requesting diet texture of mechanical soft-finely ground. MD to consider SETTLEMENT WORKER bedside swallow Evaluation to further assess swallow function and safety w/ PO intake for adequate nutrition/hydration and medication management, Plan: SETTLEMENT WORKER cognitive communication tx 3x a week x 1 week, await MD order for bedside swallow evaluation to further assess swallow physiology and efficacy for PO intake of adequate nutrition/hydration and medication management.
[2020-02-13 20:00] VITALS: BP 149/67
--- NOTE | 2020-02-13 20:15 | NUR ---
NURSE NOTES: Received patient from MOISES Alvarado. Patient shows no signs of distress or pain at the time. IV is intact and patent. Bed is in the lowest position, call light within reach, side rails up x 2. Will continue to monitor.
[2020-02-13] MEDS ORDERED: Solu-MEDROL 40mg Inj IVP SCH (21:00)
[2020-02-13] MEDS: Enoxaparin 40mg Inj SUBQ SCH (22:35)
[2020-02-13] MEDS ORDERED: Oxymetazoline 0.05% Na Spray 30ml NASAL ONE (23:30)
[2020-02-13] MEDS ORDERED: HydrOXYzine tab 25mg tab ORAL PRN (23:30)
[2020-02-14] VITALS: BP 128/69
[2020-02-14 04:00] VITALS: BP 141/84
[2020-02-14 07:22] LABS: BASOPHILS % (AUTO) 0.4 % (0.0-2.0); HEMATOCRIT 38.6 % (37.0-47.0); HEMOGLOBIN 13.2 G/DL (12.0-16.0); LYMPHOCYTES % (AUTO) 16.1 % (20.0-45.0); MEAN CORPUSCULAR VOLUME 83 FL (80-99); MONOCYTES % (AUTO) 6.5 % (1.0-10.0); PLATELET COUNT 354 K/UL (150-450); RED BLOOD COUNT 4.63 M/UL (4.20-5.40); RED CELL DISTRIBUTION WIDTH 11.4 % (11.6-14.8); WHITE BLOOD COUNT 13.8 K/UL (4.8-10.8)
--- NOTE | 2020-02-14 07:32 | NUR ---
HAND-OFF: Report given to MOISES Alvarado. Patient shows no signs of distress at the time. Endorsed plan of care.
[2020-02-14 07:54] VITALS: BP 133/65
[2020-02-14 08:14] LABS: ANION GAP 9 mmol/L (5-15); BLOOD UREA NITROGEN 8 mg/dL (7-18); CALCIUM 8.9 MG/DL (8.5-10.1); CARBON DIOXIDE 27 MMOL/L (21-32); CHLORIDE 106 MMOL/L (98-107); CREATININE 0.7 MG/DL (0.55-1.30); POTASSIUM 3.3 MMOL/L (3.5-5.1); SODIUM 142 MMOL/L (136-145)
--- NOTE | 2020-02-14 08:32 | General Progress Note ---
Assessment/Plan Assessment/Plan: 64-year-old female with PMH of laryngeal cancer status post radiation, did not receive chemotherapy, who presents to the emergency room complaining of shortness of breath for the past 2 days along with approximately 1 week of abdominal pain, nausea, and today she experienced dizziness and vertigo. #Shortness of Breath - resolved #Viral Syndrome #gastroenteritis - resolved #Leukocytosis likely 2/2 solumedrol -cont in-pt medical care, tele -CT chest and Neck w/o signs of epiglottitis or infiltrate , s/p Solumedrol IV w / improvement, saturating well on RA--> patient also endorses GI symptoms -COVID negative x1, d/c isolation -d/c solumedrol as pt w/no stridor -cont Hand Held Inhalers prn -abx Rocephin and Azithro IV -ID consulted, recs appreciated #Light headed #? labyrinthitis #Bradycardia -r/o orthostatic, may be multifactorial w/recent infection -TSH/FT4 in normal range -pt not on BB or CCB or clonidine -echo EF 60% -obtain orthostatic vital signs -meclizine PRN -encourage PO intake -cont to monitor on tele -PT/ST treat and eval -d/w cardio, cont to monitor on tele, no need for intervention at this time #Hx of Laryngeal CA, s/p Radiation -Stable DVT ppx - lovenox Time spent 35 mins, 23 mins spent on coordination of care, d/w RN and ID. Subjective Allergies: Coded Allergies: No Known Allergies (Unverified , 02/11/20) Subjective F/u for bradycardia, lightheadedness, COVID negative x1. States overall feeling better. Pt notes feeling light headed when sitting up or ambulating to the restroom, she will need to stop and sit down. She denies any CP, SOB, palpitations during this time. States she has chronic right ear pain 2/2 radiation, denies any drainage, f/c, or pain at this time. Pt's HR 35 overnight while sleeping, was 45 during the day. History obtained w/correctional medicine physician at bedside. Objective Last 24 Hour Vital Signs Date Time Temp Pulse Resp B/P (MAP) Pulse Ox O2 Delivery O2 Flow Rate FiO2 02/14/20 07:54 97.6 51 19 133/65 (87) 98 02/14/20 04:00 97.6 58 20 141/84 (103) 96 02/14/20 04:00 42 02/14/20 00:00 46 02/14/20 00:00 97.6 48 18 128/69 (88) 98 02/13/20 21:00 Room Air 02/13/20 20:00 97.4 50 17 149/67 (94) 98 02/13/20 20:00 75 02/13/20 16:00 97.8 63 20 106/68 (81) 97 02/13/20 16:00 64 02/13/20 12:00 45 02/13/20 12:00 97.6 74 18 115/78 (90) 95 02/13/20 09:00 Room Air Intake and Output 02/13/20 02/14/20 19:00 07:00 Intake Total 415 ml Output Total 1200 ml Balance -785 ml Intake Oral 140 ml IV Total 275 ml Output Urine Total 1200 ml # Voids 3 3 Laboratory Tests 02/14/20 04:30: White Blood Count 13.8H, Red Blood Count 4.63, Hemoglobin 13.2, Hematocrit 38.6 , Mean Corpuscular Volume 83, Mean Corpuscular Hemoglobin 28.6, Mean Corpuscular Hemoglobin Concent 34.3, Red Cell Distribution Width 11.4L, Platelet Count 354, Mean Platelet Volume 5.6L, Neutrophils (%) (Auto) 77.0H, Lymphocytes (%) (Auto) 16.1L, Monocytes (%) (Auto) 6.5, Eosinophils (%) (Auto) 0.0, Basophils (%) (Auto) 0.4, Sodium Level 142, Potassium Level 3.3L, Chloride Level 106, Carbon Dioxide Level 27, Anion Gap 9, Blood Urea Nitrogen 8, Creatinine 0.7, Estimat Glomerular Filtration Rate > 60, Glucose Level 86, Calcium Level 8.9, Troponin I 0.003 Height (Feet): 5 Height (Inches): 4.00 Weight (Pounds): 160 Objective General appearance: NAD, awake, alert, laying in bed comfortably HEENT: NCAT, EOMi, MMM Lungs: clear to auscultation bilaterally, no wheezing, no stridor, no accessory muscle usage Heart: regular rate and rhythm, S1, S2 normal, no murmur, click, rub or gallop Abdomen: soft, non-tender. Bowel sounds normal. No masses, no organomegaly Extremities: extremities normal, atraumatic, no cyanosis or edema Skin: Skin color, texture, turgor normal. Discoloration noted on neck 2/2 h/o radiation Neurologic: Grossly normal, no reproducible light headedness with turning head Jean Akers M.D. February 14, 2020 08:32
[2020-02-14] MEDS ORDERED: Meclizine 25mg tab ORAL PRN (09:00)
[2020-02-14] MEDS ORDERED: Solu-MEDROL 40mg Inj IVP SCH (09:00)
--- NOTE | 2020-02-14 09:20 | NUR ---
CASE MANAGEMENT: REVIEW SI: COVID R/O . LARYNGEAL CA T 97.6 HR 48 RR 18 BP 141/84 SAT 96% ROOM AIR WBC 13.8 K+ 3.3 IS: AZITHROMYCIN IV Q24HR SOLU-MEDROL IV Q12HR LOVENOX SUBQ Q24HR PT / ST EVAL TELEMETRY UNIT STATUS DCP: PATIENT IS FROM HOME
[2020-02-14] MEDS: Azithromycin 500 MG in D5W 275 ML IV SCH (11:14)
--- NOTE | 2020-02-14 11:51 | Cardiac Electrophysiology PN ---
Assessment/Plan Assessment/Plan 1. Bradycardia, etiology is not clear. Off any beta-galdino or calcium channel galdino or clonidine. Her TSH is within normal range. Echo EF 60% and was ruled out for [place]. May have SSS 2. Cough and shortness of breath. First COVID negative. She is on Solu-Medrol and azithromycin. 3. History of laryngeal cancer, status post radiation. CT of the chest and neck showed no signs of epiglottitis or infiltrate. Subjective Subjective Is being ruled out for COVID. HR dropped to 45 while awake and down to 35 while sleeping.No heart block Objective Last 24 Hour Vital Signs Date Time Temp Pulse Resp B/P (MAP) Pulse Ox O2 Delivery O2 Flow Rate FiO2 02/14/20 09:07 Room Air 02/14/20 08:00 62 02/14/20 07:54 97.6 51 19 133/65 (87) 98 02/14/20 04:00 97.6 58 20 141/84 (103) 96 02/14/20 04:00 42 02/14/20 00:00 46 02/14/20 00:00 97.6 48 18 128/69 (88) 98 02/13/20 21:00 Room Air 02/13/20 20:00 97.4 50 17 149/67 (94) 98 02/13/20 20:00 75 02/13/20 16:00 97.8 63 20 106/68 (81) 97 02/13/20 16:00 64 02/13/20 12:00 45 02/13/20 12:00 97.6 74 18 115/78 (90) 95 Intake and Output 02/13/20 02/14/20 19:00 07:00 Intake Total 415 ml Output Total 1200 ml Balance -785 ml Intake Oral 140 ml IV Total 275 ml Output Urine Total 1200 ml # Voids 3 3 Laboratory Tests Test 02/14/20 04:30 White Blood Count 13.8 K/UL (4.8-10.8) H Red Blood Count 4.63 M/UL (4.20-5.40) Hemoglobin 13.2 G/DL (12.0-16.0) Hematocrit 38.6 % (37.0-47.0) Mean Corpuscular Volume 83 FL (80-99) Mean Corpuscular Hemoglobin 28.6 PG (27.0-31.0) Mean Corpuscular Hemoglobin Concent 34.3 G/DL (32.0-36.0) Red Cell Distribution Width 11.4 % (11.6-14.8) L Platelet Count 354 K/UL (150-450) Mean Platelet Volume 5.6 FL (6.5-10.1) L Neutrophils (%) (Auto) 77.0 % (45.0-75.0) H Lymphocytes (%) (Auto) 16.1 % (20.0-45.0) L Monocytes (%) (Auto) 6.5 % (1.0-10.0) Eosinophils (%) (Auto) 0.0 % (0.0-3.0) Basophils (%) (Auto) 0.4 % (0.0-2.0) Sodium Level 142 MMOL/L (136-145) Potassium Level 3.3 MMOL/L (3.5-5.1) L Chloride Level 106 MMOL/L (98-107) Carbon Dioxide Level 27 MMOL/L (21-32) Anion Gap 9 mmol/L (5-15) Blood Urea Nitrogen 8 mg/dL (7-18) Creatinine 0.7 MG/DL (0.55-1.30) Estimat Glomerular Filtration Rate > 60 mL/min (>60) Glucose Level 86 MG/DL (74-106) Calcium Level 8.9 MG/DL (8.5-10.1) Troponin I 0.003 ng/mL (0.000-0.056) Microbiology Date/Time Source Procedure Growth Status 02/11/20 18:15 Blood Blood Culture - Preliminary NO GROWTH AFTER 48 HOURS Resulted 02/11/20 18:00 Blood Blood Culture - Preliminary NO GROWTH AFTER 48 HOURS Resulted 02/11/20 19:33 Nasopharynx Coronavirus COVID-19 PCR ([facility]) - Final Complete Objective HEAD AND NECK: No JVD LUNGS: Clear. CARDIOVASCULAR: Bradycardic S1 and S2 with no gallop. ABDOMEN: Soft. EXTREMITIES: No pitting edema. Arnaldo Reid MD February 14, 2020 11:51
[2020-02-14 12:00] VITALS: BP 121/59
--- NOTE | 2020-02-14 14:00 | NUR ---
PT NOTES M.D. order received for PT evaluation and treatment. PT evaluation completed and patient is already at prior level of function. Patient demonstrated good safety awareness and independence with bed mobility, transfers and gait without assistive device and no LOB. Patient educated on impt of mobility during hospital stay to prevent deconditioning. No complaints of pain and no labored breathing noted during evaluation. Patient is not a candidate for skilled PT and cleared to get up with nursing supervision since no functional limitations noted. Thank you for this referral.
--- NOTE | 2020-02-14 15:01 | NUR ---
*-* INSURANCE *-* ALL AVAILABLE CLINICALS HAVE BEEN FAXED TO: ASHELY WINTER:CONY P: [phone]
[2020-02-14 16:00] VITALS: BP 102/53
[2020-02-14 20:00] VITALS: BP 118/60
--- NOTE | 2020-02-14 20:00 | NUR ---
NURSE NOTES: Got report from Christiano RN. Pt in stable condition. No s/s of distress or discomfort noted. Pt resting in bed comfortably. Bed in low and locked position, call light within reach, bedside table within reach. Continue to monitor.
--- NOTE | 2020-02-14 21:48 | Infectious Diseases Prog Note ---
Assessment/Plan Assessment/Plan Full consult dictated: A) 1) leukocytosis likely secondary to steroids, less likely sepsis 2) uri/bronchitis 3) covid-19 testing negative 4) pmh noted 5) allergies - nkda P) 1) azithromycin - day # 3/5 2) monitor leukocytosis 3) thankl you Subjective Allergies: Coded Allergies: No Known Allergies (Unverified , 02/11/20) Objective Vital Signs Last 24 Hour Vital Signs Date Time Temp Pulse Resp B/P (MAP) Pulse Ox O2 Delivery O2 Flow Rate FiO2 02/14/20 16:00 96.7 57 19 102/53 (69) 96 02/14/20 16:00 54 02/14/20 12:00 44 02/14/20 12:00 96.7 54 20 121/59 (79) 97 02/14/20 09:07 Room Air 02/14/20 08:00 62 02/14/20 07:54 97.6 51 19 133/65 (87) 98 02/14/20 04:00 97.6 58 20 141/84 (103) 96 02/14/20 04:00 42 02/14/20 00:00 46 02/14/20 00:00 97.6 48 18 128/69 (88) 98 Height (Feet): 5 Height (Inches): 4.00 Weight (Pounds): 160 Laboratory Tests Test 02/14/20 04:30 White Blood Count 13.8 K/UL (4.8-10.8) H Red Blood Count 4.63 M/UL (4.20-5.40) Hemoglobin 13.2 G/DL (12.0-16.0) Hematocrit 38.6 % (37.0-47.0) Mean Corpuscular Volume 83 FL (80-99) Mean Corpuscular Hemoglobin 28.6 PG (27.0-31.0) Mean Corpuscular Hemoglobin Concent 34.3 G/DL (32.0-36.0) Red Cell Distribution Width 11.4 % (11.6-14.8) L Platelet Count 354 K/UL (150-450) Mean Platelet Volume 5.6 FL (6.5-10.1) L Neutrophils (%) (Auto) 77.0 % (45.0-75.0) H Lymphocytes (%) (Auto) 16.1 % (20.0-45.0) L Monocytes (%) (Auto) 6.5 % (1.0-10.0) Eosinophils (%) (Auto) 0.0 % (0.0-3.0) Basophils (%) (Auto) 0.4 % (0.0-2.0) Sodium Level 142 MMOL/L (136-145) Potassium Level 3.3 MMOL/L (3.5-5.1) L Chloride Level 106 MMOL/L (98-107) Carbon Dioxide Level 27 MMOL/L (21-32) Anion Gap 9 mmol/L (5-15) Blood Urea Nitrogen 8 mg/dL (7-18) Creatinine 0.7 MG/DL (0.55-1.30) Estimat Glomerular Filtration Rate > 60 mL/min (>60) Glucose Level 86 MG/DL (74-106) Calcium Level 8.9 MG/DL (8.5-10.1) Troponin I 0.003 ng/mL (0.000-0.056) Current Medications Medications (Trade) Dose Ordered Sig/Grady Route PRN Reason Start Time Stop Time Status Last Admin Dose Admin Acetaminophen (Tylenol) 650 mg Q4H PRN ORAL Mild Pain (Pain Scale 1-3) 02/11/20 22:00 03/12/20 21:59 Acetaminophen (Tylenol) 650 mg Q4H PRN ORAL Temp >100.5 02/11/20 22:00 03/12/20 21:59 Albuterol/ Ipratropium (Combivent Respimat) 1 puff Q6H PRN INH Shortness of Breath 02/12/20 00:00 03/13/20 00:00 Azithromycin 500 mg/Dextrose 275 ml @ 275 mls/hr Q24HRS IV 02/12/20 11:00 02/18/20 11:59 02/14/20 11:14 Dextrose (Dextrose 50%) 25 ml Q30M PRN IV Hypoglycemia 02/11/20 22:00 05/11/20 21:59 Dextrose (Dextrose 50%) 50 ml Q30M PRN IV Hypoglycemia 02/11/20 22:00 05/11/20 21:59 Enoxaparin Sodium (Lovenox) 40 mg Q24H SUBQ 02/11/20 23:00 05/11/20 22:59 02/13/20 22:35 Famotidine (Pepcid) 20 mg BID ORAL 02/12/20 09:00 05/12/20 08:59 02/14/20 18:00 Meclizine HCl (Antivert) 25 mg Q6H PRN ORAL for dizziness 02/14/20 09:00 03/15/20 08:59 Ondansetron HCl (Zofran) 4 mg Q6H PRN IVP Nausea & Vomiting 02/11/20 22:00 03/12/20 21:59 Potassium Chloride (K-Dur) 20 meq DAILY ORAL 02/14/20 09:00 05/14/20 08:59 02/14/20 09:00 Dariana Parada MD February 14, 2020 21:48
[2020-02-14] MEDS: Enoxaparin 40mg Inj SUBQ SCH (23:00)
[2020-02-15] VITALS: BP 126/67
--- NOTE | 2020-02-15 00:15 | Consultation ---
DATE OF CONSULTATION: 02/14/2020 INFECTIOUS DISEASES CONSULTATION CONSULTING PHYSICIAN: Dariana Parada MD. ATTENDING PHYSICIAN: Jaylen Soto MD. REFERRING PHYSICIAN: Ramona Akers MD. REASON FOR CONSULTATION: Possible sepsis, elevated white count, respiratory infection, rule out COVID-19 virus infection. CHIEF COMPLAINT: The patient's chief complaint coming into hospital is stridor and respiratory symptoms. HISTORY OF PRESENT ILLNESS: This is a very pleasant 64-year-old female who comes into [facility] with stridor and likely upper respiratory infection. CT scan of the chest showed no pneumonia. CT scan of the neck was unremarkable. Infectious diseases consultation requested because the patient had elevated white count, but the patient is on Solu-Medrol. She is currently on azithromycin. MAR was noted. Orders were noted. Notes were reviewed. REVIEW OF SYSTEMS: As discussed. She had respiration symptoms and stridor. Currently, she is stable. She has had no fevers. CARDIAC: No chest pain. GASTROINTESTINAL: No nausea, vomiting, or diarrhea. GENITOURINARY: No urinary symptoms. PULMONARY: No secretions. SKIN: No rash. PAST MEDICAL HISTORY: The patient's past medical history includes the following: The patient has a past medical history of laryngeal cancer status post radiation treatment, no chemotherapy it looks like per the records, history of pituitary adenoma laryngeal cancer. She has no history of diabetes or hypertension. SOCIAL HISTORY: Negative for smoking, alcohol, or drug use. FAMILY HISTORY: Positive for diabetes and hypertension. ALLERGIES: No known drug allergies. MEDICATIONS: Upon reviewing the MAR, she is on following medications. She is on potassium. She is on Antivert, methylprednisolone, hydroxyzine, azithromycin, famotidine, acetaminophen, Zofran. She was given a dose of Rocephin on 02/11/2020. Azithromycin which she is on, it was 02/12/2020, today is day#3. Outside medications noted and reconciliated. PHYSICAL EXAMINATION: VITAL SIGNS: Temperature 96.7, pulse rate 54, respiratory rate 19, blood pressure 102/53, saturation is 96% on room air. GENERAL: Alert and responsive, seems to be oriented. HEAD AND NECK: Oral exam, no thrush. Eye exam, no icterus. Normocephalic. Neck is supple. HEART: Regular. No gallop or murmur. ABDOMEN: Soft. Positive bowel sounds. Nontender. LUNGS: Clear bilaterally. No rhonchi or rales. SKIN: No rash. MUSCULOSKELETAL: No effusions. Legs are without cellulitis. PERIPHERAL VASCULAR: No cyanosis. GENITOURINARY: No Watts. LINES: Lines sites are without phlebitis NEUROLOGIC: Intact. LABORATORY DATA: Laboratory count on admission 6.8, now it is 13.8, hemoglobin 13.2, white count yesterday is 14.4. Creatinine normal at 0.7. LFTs noted. IMAGING STUDIES: CT scan of the chest showed no focal findings. CT scan of the neck was negative for any significant findings. ASSESSMENT AND PLAN: 1. The patient has stridor and likely upper respiratory infection/bronchitis. No evidence of pneumonia. I agree with azithromycin. I agree with 5-day course, today is day 3/5. Elevated white count certainly is not sepsis, it is most likely secondary to steroids that she has been on. COVID-19 testing is negative and she has a low suspicion for this disease. Continue azithromycin day #3/5. Otherwise stable from ID standpoint. Monitor leukocytosis. 2. Pituitary adenoma. 3. Laryngeal cancer. 4. History of radiation therapy. 5. No known drug allergies. 6. Social history is negative. 7. Family history is positive for diabetes and hypertension. 8. MAR was noted. 9. Case discussed with RN. 10. Continue treatment per primary consultants. Dariana Parada M.D. DR: Sun JOB#: [id number] CC:
[2020-02-15 04:00] VITALS: BP 133/76
--- NOTE | 2020-02-15 07:20 | NUR ---
HAND-OFF: Report given to Dia DE LEON.
[2020-02-15 07:34] LABS: ANION GAP 6 mmol/L (5-15); BLOOD UREA NITROGEN 17 mg/dL (7-18); CALCIUM 8.7 MG/DL (8.5-10.1); CARBON DIOXIDE 32 MMOL/L (21-32); CHLORIDE 104 MMOL/L (98-107); CREATININE 0.8 MG/DL (0.55-1.30); POTASSIUM 3.5 MMOL/L (3.5-5.1); SODIUM 141 MMOL/L (136-145)
[2020-02-15 07:38] LABS: BASOPHILS % (AUTO) 0.9 % (0.0-2.0); EOSINOPHILS % (AUTO) 0.2 % (0.0-3.0); HEMATOCRIT 37.1 % (37.0-47.0); HEMOGLOBIN 13.1 G/DL (12.0-16.0); LYMPHOCYTES % (AUTO) 22.4 % (20.0-45.0); MEAN CORPUSCULAR VOLUME 82 FL (80-99); MONOCYTES % (AUTO) 8.1 % (1.0-10.0); NEUTROPHILS % (AUTO) 68.4 % (45.0-75.0); PLATELET COUNT 334 K/UL (150-450); RED BLOOD COUNT 4.53 M/UL (4.20-5.40); RED CELL DISTRIBUTION WIDTH 11.2 % (11.6-14.8); WHITE BLOOD COUNT 10.2 K/UL (4.8-10.8)
[2020-02-15 08:00] VITALS: BP 138/61
[2020-02-15] MEDS: Azithromycin 500 MG in D5W 275 ML IV SCH (11:00)
[2020-02-15 12:00] VITALS: BP 141/93
[2020-02-15] MEDS ORDERED: MEDROL DOSEPAK4 MG ORAL (12:30)
[2020-02-15] MEDS ORDERED: AZITHROMYCIN500 MG ORAL (12:30)
--- NOTE | 2020-02-15 12:37 | Discharge Summary ---
Discharge Summary Hospital Course Date of Admission February 11, 2020 at 19:11 Date of Discharge Admitting Diagnosis stridor, URI HPI Cynthia Ruiz is a 64 year old female who was admitted on February 11, 2020 at 19:11 for Stridor,Uti Hospital Course 64-year-old female with PMH of laryngeal cancer status post radiation, did not receive chemotherapy, who presents to the emergency room complaining of shortness of breath for the past 2 days along with approximately 1 week of abdominal pain, nausea, and today she experienced dizziness and vertigo. Pt was admitted for COVID rule out given GI symptoms, COVID was NEGATIVE. Patient stated she had inhaled hand oncology physician and feels that her symptoms were likely due to to irritation. Patient states symptoms improved after IV Solu-Medrol. ID was consulted and patient was started on antibiotics. During hospital stay, patient noted to have bradycardia. Patient was asymptomatic, bradycardia was noted during times of sleeping and upon early awakening. Cardio was consulted, stated no need for intervention at this time however will follow-up as outpatient. D/w ID, pt to complete 5 days of azithromycin, patient to be DC'd home home health to finish out azithromycin for 1 more day and a Medrol Dosepak. #Shortness of Breath - resolved 2/2 inhaled irritant #gastroenteritis - resolved #Leukocytosis 2/2 solumedrol #Bradycardia, asymptomatic #Hx of Laryngeal CA, s/p Radiation D/c planning >30 mins. Discharge Medications New Medications: Azithromycin (Azithromycin) 500 Mg Tablet 500 MG ORAL DAILY for 1 Day, #1 TAB Methylprednisolone (Methylprednisolone*) 4MG Dspk 4 MG ORAL DIRECTED for 6 Days, #21 EA 0 Refills Day 1: Two tablets before breakfast, one after lunch, one after dinner, and two at bedtime. If started late in the day, take all six tablets at once or divide into two or three doses, unless otherwise directed by prescriber. Day 2: One tablet before breakfast, one after lunch, one after dinner, and two at bedtime Day 3: One tablet before breakfast, one after lunch, one after dinner, and one at bedtime Day 4: One tablet before breakfast, one after lunch, and one at bedtime Day 5: One tablet before breakfast and one at bedtime Day 6: One tablet before breakfast Discharge Condition Upon Discharge: stable Discharge Vital Signs Last Vital Signs Date Time Temp Pulse Resp B/P (MAP) Pulse Ox O2 Delivery O2 Flow Rate FiO2 02/15/20 09:00 Room Air 02/15/20 08:00 97.8 82 18 138/61 (86) 98 Discharge Disposition Patient was discharged to home w/home health. Discharge Instructions Discharge Instructions Follow up with: PCP and system sales consultant, Dr. Reid, or your choice system sales consultant in 1-2 weeks. May Return to Work/School On: February 16, 2020 Special Instructions Ms Ruiz was tested for COVID-19 and was NEGATIVE. She may return to work on 02/16/20 with no restrictions. Jean Akers M.D. February 15, 2020 12:37
--- NOTE | 2020-02-15 13:24 | Cardiac Electrophysiology PN ---
Assessment/Plan Assessment/Plan 1. Bradycardia, etiology is not clear. Off any beta-galdino or calcium channel galdino or clonidine. Her TSH is within normal range. Echo EF 60% and was ruled out for AR. Zio patch as out patient 2. Cough and shortness of breath. First COVID negative. She is on Solu-Medrol and azithromycin. 3. History of laryngeal cancer, status post radiation. CT of the chest and neck showed no signs of epiglottitis or infiltrate. MARY KAY Akers Subjective Subjective Comfortable in NAD. No critical arrhythmias overnight Objective Last 24 Hour Vital Signs Date Time Temp Pulse Resp B/P (MAP) Pulse Ox O2 Delivery O2 Flow Rate FiO2 02/15/20 13:11 52 59 61 02/15/20 12:00 97.4 52 20 141/93 (109) 98 02/15/20 09:00 Room Air 02/15/20 08:00 97.8 82 18 138/61 (86) 98 02/15/20 08:00 63 02/15/20 04:00 97.7 63 17 133/76 (95) 97 02/15/20 04:00 51 02/15/20 00:00 44 02/15/20 00:00 97.8 58 17 126/67 (86) 96 02/14/20 21:00 Room Air 02/14/20 20:00 60 02/14/20 20:00 97.5 61 16 118/60 (79) 97 02/14/20 16:00 96.7 57 19 102/53 (69) 96 02/14/20 16:00 54 Intake and Output 02/14/20 02/15/20 19:00 07:00 Intake Total 140 ml Output Total 1200 ml Balance -1060 ml Intake Oral 140 ml Output Urine Total 1200 ml # Voids 3 2 Laboratory Tests Test 02/15/20 06:38 White Blood Count 10.2 K/UL (4.8-10.8) Red Blood Count 4.53 M/UL (4.20-5.40) Hemoglobin 13.1 G/DL (12.0-16.0) Hematocrit 37.1 % (37.0-47.0) Mean Corpuscular Volume 82 FL (80-99) Mean Corpuscular Hemoglobin 28.9 PG (27.0-31.0) Mean Corpuscular Hemoglobin Concent 35.3 G/DL (32.0-36.0) Red Cell Distribution Width 11.2 % (11.6-14.8) L Platelet Count 334 K/UL (150-450) Mean Platelet Volume 7.0 FL (6.5-10.1) Neutrophils (%) (Auto) 68.4 % (45.0-75.0) Lymphocytes (%) (Auto) 22.4 % (20.0-45.0) Monocytes (%) (Auto) 8.1 % (1.0-10.0) Eosinophils (%) (Auto) 0.2 % (0.0-3.0) Basophils (%) (Auto) 0.9 % (0.0-2.0) Sodium Level 141 MMOL/L (136-145) Potassium Level 3.5 MMOL/L (3.5-5.1) Chloride Level 104 MMOL/L (98-107) Carbon Dioxide Level 32 MMOL/L (21-32) Anion Gap 6 mmol/L (5-15) Blood Urea Nitrogen 17 mg/dL (7-18) Creatinine 0.8 MG/DL (0.55-1.30) Estimat Glomerular Filtration Rate > 60 mL/min (>60) Glucose Level 88 MG/DL (74-106) Calcium Level 8.7 MG/DL (8.5-10.1) Objective HEAD AND NECK: No JVD LUNGS: Clear. CARDIOVASCULAR: Bradycardic S1 and S2 with no gallop. ABDOMEN: Soft. EXTREMITIES: No pitting edema. Arnaldo Reid MD February 15, 2020 13:24
--- NOTE | 2020-02-15 13:59 | NUR ---
*-* INSURANCE *-* ALL AVAILABLE CLINICALS HAVE BEEN FAXED TO: [facility] P: [phone]
--- NOTE | 2020-02-15 15:14 | NUR ---
CASE MANAGEMENT: DCP ORDER FOR HOME HEALTH FOR BP CHECK NOTED ORDER FAXED TO [facility] [phone] / UNABLE TO ACCEPT THE PATIENT ORDER FAXED TO [facility] [phone] / UNABLE TO ACCEPT THE PATIENT ORDER FAXED TO [facility] [phone] / [facility] THEY ARE ABLE TO ACCEPT THE PATIENT
--- NOTE | 2020-02-15 15:25 | NUR ---
[employer] orders received and acknowledged for Bedside Swallow Evaluation. Per Pt, leaving later today, due to [employer] time constraints, informal swallow evaluation completed. Pt does not present w/ any overt s/s of aspiration w/ PO per nursing. Pt states current diet consistency of mechanical soft-ground with thin liquids is difficult to masticate, suspect Pt is experiencing trismus s/p radiation causing Pt pain w/ mastication. Pt additionally endorses Xerostomia, vocal fatigue, and presents w/ dysphonia. Pt was educated on potential changes to mucosa, production of saliva, and physiological changes that may occur s/p COCONUT BOILER. Pt would benefit from outpatient [employer] intervention targeting ongoing management of dysphonia s/p COCONUT BOILER including an outpatient videolaryngostroboscopy to objectively analyze vocal physiology. Patient specifically states vocal quality often impacts others' ability to understanding Pt, which is effects Pt's social participation, communication efficacy, and quality of life. MD to consider referring Pt to an outpatient [employer] for further management of dysphonia s/p COCONUT BOILER. RN made aware of results and recommendations.
--- NOTE | 2020-02-15 16:15 | NUR ---
ORDER FOR HOME HEALTH FOR BP CHECK PER [facility] START OF SERVICE 02/16/2020 Addendum: 02/15/20 at 1617 by SIMONE OLMSTEAD CM NURSE SY VERIFIED HOME ADDRESS AND PHONE NUMBER IS THE SAME ON THE FACESHEET
--- NOTE | 2020-02-15 17:58 | NUR ---
NURSE NOTES: IV removed, IV band removed. Pt was dc and perscription given/
--- NOTE | 2020-02-16 16:20 | NUR ---
*-* NO DISCHARGE SUMMARY IN THE SYSTEM UNABLE TO FAX TO [employer] *-*
== END 2020-02-15 17:53 | disposition home health service (06) | DRG 145 ==
LOC: EMR 16:19 → 2E 19:11 → OBSVTOIN 19:11 → EDBEDREQ 19:45 → 2E 02-12 17:50
DX: J40 Bronchitis, not specified as acute or chronic (principal); R00.1 Bradycardia, unspecified; R06.1 Stridor; K52.9 Noninfective gastroenteritis and colitis, unspecified; D35.2 Benign neoplasm of pituitary gland; Z85.21 Personal history of malignant neoplasm of larynx; Z92.3 Personal history of irradiation; T49.0X1A Poisoning by local antifungal, anti-infective and anti-inflammatory drugs, accidental (unintentional), initial encounter; J68.9 Unspecified respiratory condition due to chemicals, gases, fumes and vapors; D72.829 Elevated white blood cell count, unspecified; T38.0X5A Adverse effect of glucocorticoids and synthetic analogues, initial encounter
CPT/HCPCS: 36415; 70491; 71260; 80048; 80053; 80076; 82550; 82728; 83615; 83735; 84100; 84439; 84443; 84484; 85007; 85025; 85379; 86140; 87040; 87635; 93005; 93306; 96360; 96361; 96365; 96366; 96372; 96374; 96375; 99285; C8957; J8499